=== PATIENT | female | born 1995 | race Caucasian/White ===

== ENCOUNTER 2018-04-22 18:09 | Emergency (ER) | payer OTHER ==
[2018-04-22] MEDS ORDERED: Adacel (T-DAP) 0.5 ML SYRINGE ONE (18:53)
--- NOTE | 2018-04-22 19:51 | RAD ---
RADIOGRAPH RIGHT LEG TIBIA AND FIBULA TWO VIEWS: HISTORY: A 22-year-old female, status post penetrating trauma due to dog bite to the leg. FINDINGS: No radiopaque foreign body. No periostitis, fracture, or any other focal osseous abnormality involvi ng the tibia or fibula. IMPRESSION: Negative. POS: [facility]
[2018-04-22] MEDS ORDERED: HYDROcodone/Acetaminophen 5/325 mg Tablet ONE (20:23)
[2018-04-22] MEDS ORDERED: Amoxicillin/Potassium Clav 875 MG TAB ONE (20:24)
[2018-04-22] MEDS ORDERED: Ibuprofen 800 MG TAB ONE (20:24)
[2018-04-22] MEDS ORDERED: Bacitracin Zinc 1 Packet ONE (20:31)
== END 2018-04-22 21:04 | disposition home or self-care (01) ==
LOC: SCSER 18:09
DX: S51.851A Open bite of right forearm, initial encounter (principal); W54.0XXA Bitten by dog, initial encounter
CPT/HCPCS: 12002; 90471; 90715